=== PATIENT | female | born 1980 | race Asian ===

== ENCOUNTER 2016-08-01 12:24 | Day surgery (SDC) | payer BC ==
[~2016-08-01] VITALS: Ht 152.4 cm; Wt 51.5 kg
[~2016-08-01 12:24] MED LIST: ALBU8.5H3 INH; BEN25 PO; CETI10CA PO; EPIN0.3P4 INJ; FAMO-18 PO; GUAI473L22 PO; KENC1 TOP; PRED20TA PO; RANI150T9 PO; SIME80TA PO
[2016-08-01 13:19] VITALS: Ht 152.4 cm; Wt 51.5 kg
[2016-08-01] MEDS ORDERED: vitamins (13:19)
[2016-08-01 13:57] VITALS: BP 114/59; PULSE 97; RESP 18
[2016-08-01] MEDS ORDERED: PROPOFOL 20 ML ONE (14:00)
[2016-08-01] MEDS ORDERED: LIDOCAINE 2% (SDV) 5 ML INJ ONE (14:00)
[2016-08-01] MEDS ORDERED: MIDAZOLAM 1 MG/ML 2 ML INJ ONE (14:00)
[2016-08-01 14:24] VITALS: BP 113/57; RESP 18
[2016-08-01 15:02] VITALS: BP 101/55; PULSE 84; RESP 17
[2016-08-01 15:20] VITALS: BP 103/55; PULSE 92; RESP 20
--- NOTE | 2016-08-01 19:01 | GILP ---
DATE OF PROCEDURE: NAME OF PROCEDURE: Colonoscopy to the cecum. SURGEON: Zahida Longoria MD. HISTORY AND INDICATIONS: The patient being evaluated for severe persistent constipation. PREMEDICATION: Monitored anesthesia care by anesthesiologist. INSTRUMENT USED: Olympus colonoscope. PREPARATION: Adequate. TECHNIQUE: After informed consent, with the patient/relatives understanding the procedure, its indic ations potential risks and complications, including but not limited to: allergic reaction, bleeding, perforation, infection, missed lesions and, after all pertinent questions were answered to the kati ent's satisfaction, the patient/relatives signed the witnessed informed consent. Following this, premedication was administered slowly IV push by under careful cardiovascular and re spiratory monitoring with pulse oximetry, automatic blood pressure and hospital internship. Once the sedati ve effect was achieved, the patient was placed in the left lateral decubitus position, digital recta l examination was performed. The colonoscope was then introduced and advanced under visual control throughout all segments of the colon including: the rectum, sigmoid, descending colon, splenic flexu re, transverse colon, hepatic flexure, ascending colon and finally reaching the cecum which was solis rly identified by transillumination, finger indentation and the ileocecal valve. Careful examinatio n of the mucosa of the lower gastrointestinal tract both on insertion as well as withdrawal of the i nstrument disclosed the following findings: Rectal Examination: No evidence of perirectal disease, no masses. Colonic Mucosa: Mucosa entirely unremarkable throughout. The ileocecal valve was clearly identified and appears unremarkable. The instrument was withdrawn reexamining the mucosa in detail. No addit ional abnormalities are noted with exception of small to moderate sized internal hemorrhoids. The instrument was then withdrawn, the patient tolerated the procedure well and was transferred out of the Endoscopy Suite awake and in good condition to continue recovery under observation. IMPRESSION: 1. Normal colonic mucosa to cecum. 2. Small to moderate sized internal hemorrhoids. PLAN: The patient will be continued on present regimen. High fiber diet is recommended. Maalox wi ll be added to her regimen and, if insufficient to improve her symptoms, we may consider Linzess the rapy. Dictated By: ZAHIDA LONGORIA MS/NTS Conf#: [id number] DID#: [id number] CC: ZAHIDA LONGORIA;*EndCC*
--- NOTE | 2016-08-01 19:15 | GILP ---
DATE OF PROCEDURE: NAME OF PROCEDURE: Esophagogastroduodenoscopy with biopsies. SURGEON: Zahida Longoria MD HISTORY AND INDICATIONS: The patient with complaints of significant dyspepsia. PREMEDICATION: Monitored anesthesia care by anesthesiologist. INSTRUMENT USED: Olympus panendoscope. TECHNIQUE: After informed consent, with the patient/relatives understanding the procedure, its indic ations, potential risks and complications, including but not limited to: allergic reaction, bleeding , perforation or infection, and after all pertinent questions were answered to the patient's satisfa ction, the patient/relatives signed witnessed informed consent. Following this, premedication was administered slowly IV push under careful cardiovascular and respi ratory monitoring with pulse oximetry, automatic blood pressure and playground monitor. Once the sedative effect was achieved the patient was place in the left lateral decubitus, the panen doscope was introduced and advanced under visual control. Careful examination of the upper gastrointestinal tract, both on insertion as well as withdrawal of the instrument disclosed the following findings: ESOPHAGUS: The mucosa of the entire esophagus appears within normal limits. There is no evidence of esophagitis, varices, neoplasm or stricture. No hiatal hernia identified. STOMACH: Upon entrance to the stomach, air was insufflated. The gastric hill distended normally. The mucosa of the fundus, body and antrum of the stomach was carefully examined, shows erythema and edema of the mucosa of a moderate degree. Biopsies were obtained to rule out H pylori infection. PYLORUS: The pylorus appears patent and within normal limits, with no evidence of gastric outlet ob struction. DUODENUM: The duodenal mucosa was carefully examined in the duodenal bulb as well as the second por tion of the duodenum and appears unremarkable with no evidence of duodenitis, ulcer or neoplasm. The instrument was then withdrawn. The patient tolerated the procedure well and was transferred out of the endoscopy suite awake and in good condition to continue recovery under observation IMPRESSION: Moderate gastritis, rule out Helicobacter pylori infection. PLAN: The patient will follow up as an outpatient. Pathology will be reviewed as soon as available . The patient will be started on PPIs, i.e. omeprazole 40 mg daily. Further recommendation will de pend on her clinical course as well as review of biopsies. Dictated By: ZAHIDA LONGORIA MS/MARTI Conf#: [id number] DID#: [id number]
== END 2016-08-01 15:01 | disposition home or self-care (01) ==
LOC: GIL 12:24
PROVIDERS: ATTEND Internal Medicine Gastroenterology
DX: Z12.11 Encounter for screening for malignant neoplasm of colon (principal); K29.50 Unspecified chronic gastritis without bleeding; K64.8 Other hemorrhoids
CPT/HCPCS: 43239; 45378; 84703; 88305; 88312; J2250; Z7610

== ENCOUNTER 2017-07-28 11:55 | Emergency (ER) | END 2017-07-28 12:03 | disposition home or self-care (01) ==

== ENCOUNTER 2018-01-01 22:43 | Emergency (ER) | END 2018-01-02 02:01 | disposition home or self-care (01) ==

== ENCOUNTER 2019-04-13 18:53 | Emergency (ER) | payer BC ==
[~2019-04-13] VITALS: Ht 152.4 cm; Wt 53.0 kg
[~2019-04-13 18:53] MED LIST changes: +ACET325T33 PO; +ACET500C5 PO; +ACYC800T5 PO; -ALBU8.5H3 INH; +AZIT250T PO; -BEN25 PO; -CETI10CA PO; +D-ME473S2 PO; +DOCU-144 PO; -EPIN0.3P4 INJ; -FAMO-18 PO; +FAMO-96 PO; -GUAI473L22 PO; +HYDR25SU23 PR; +HYDR26CR PR; +IBUP-1561 PO; -KENC1 TOP; +METO10TA92 PO; -PRED20TA PO; -RANI150T9 PO; -SIME80TA PO; +vitamins
[2019-04-13 18:56] VITALS: BP 132/72; PULSE 72; RESP 16; Ht 152.4 cm; Wt 53.0 kg
== END 2019-04-13 19:47 | disposition home or self-care (01) ==
LOC: E/R 18:53
DX: J02.9 Acute pharyngitis, unspecified (principal); K21.9 Gastro-esophageal reflux disease without esophagitis
CPT/HCPCS: 93005